=== PATIENT | male | born 1940 | race Caucasian/White ===

== ENCOUNTER 2017-09-03 18:43 | Inpatient (IN) ==
[2017-09-03] MEDS ORDERED: IOPAMIDOL 100 ML BOTTLE IV ONE (18:44)
--- NOTE | 2017-09-03 19:09 | Emergency Department Note ---
Abdominal Pain HPI - General Chief Complaint: Abdominal Pain Stated Complaint: Abdominal pain Time Seen by Provider: 09/03/17 18:53 Source: patient Mode of arrival: ambulatory Limitations: no limitations - History of Present Illness HPI Narrative: Patient presents, feeling poorly with distended abdomen. Symptoms began on Wednesday, sensitivity overheated. Began sweating profusely headache and malaise with abdominal discomfort. Occurred while he was camping. Mild nausea but no emesis. Over the last few days, very fatigued, spending most of his day sitting in armchair. Improved malaise but discomfort in his abdomen, flanks and generalized. No dysuria no change in urination. Minimal stooling but he has had several small. Distention continues, not improved with eating but has ongoing anorexia. No fevers or chills, otherwise general weakness. - Related Data Home Medications Medication Instructions Recorded Confirmed Aspirin [Orly Chewable Aspirin] 81 mg PO QDAY 12/22/15 04/10/17 Omeprazole [PriLOSEC] 20 mg PO ACB 12/22/15 04/10/17 PARoxetine HCL [Paxil] 10 mg PO QDAY 12/22/15 04/10/17 Gemfibrozil [Lopid] 600 mg PO BID 08/02/16 08/02/16 Previous Rx's Medication Instructions Recorded Oseltamivir Phosphate [Tamiflu] 75 mg PO BID #10 cap 04/10/17 Allergies Allergy/AdvReac Type Severity Reaction Status Date / Time No Known Drug Allergies Allergy Verified 08/02/16 18:45 Review of Systems All systems ED: reviewed and negative except as stated. Constitutional: Denies: fever, chills Cardiovascular: Denies: chest pain Respiratory: Denies: shortness of breath Gastrointestinal: Reports: nausea. Denies: vomiting Abdominal Pain PMH - Past Medical History Attestation: Yes: The following information was validated with the patient. Medical history: Reports: DVT, hyperlipidemia, other (no history of heart disease,pneumonia) Surgical history ED: Reports: colectomy, other (left renal resection) Psychiatric history: Reports: depression Family history: Reports: non-contributory - Social History Smoking status: Former smoker Alcohol use: Reports: Occasionally Drug use: Reports: none Physical Exam Limitations: no limitations General appearance: alert, in distress Head: atraumatic, normocephalic Eye: Present: normal appearance ENT: normal exam, mucous membranes moist Neck: Present: normal inspection. Absent: lymphadenopathy Chest: Present: normal inspection Respiratory: Present: normal lung sounds bilaterally. Absent: respiratory distress Cardiovascular: Present: regular rate, normal rhythm Abdominal: Present: distention (tympanitic, high tone bowel sounds), tenderness (mildly diffuse) Abdominal tenderness: Present: diffuse, mild Extremities: Present: normal inspection Back: Present: normal inspection Neurological: Present: alert, oriented X3 Skin: Present: warm, dry Course Vital Signs Temperature 98.5 F 09/03/17 18:44 Pulse Rate 83 09/03/17 18:44 Respiratory Rate 20 09/03/17 18:44 Blood Pressure 141/79 09/03/17 18:44 Pulse Oximetry (%) 96 09/03/17 18:44 Temperature 98.5 F 09/03/17 18:44 Pulse Rate 86 09/03/17 22:31 Respiratory Rate 20 09/03/17 18:44 Blood Pressure 144/79 09/03/17 22:31 Pulse Oximetry (%) 95 09/03/17 22:31 Abdominal Pain - Lab Data Lab results reviewed: Yes I reviewed the patient's lab results. Result diagrams: 09/03/17 19:36 09/03/17 19:36 Lab Results 09/03/17 09/03/17 Range/Units 19:36 19:36 WBC 10.7 (4.5-11.0) K/mcL RBC 4.01 L (4.50-5.90) M/mcL Hgb 13.1 L (13.5-16.5) g/dL Hct 38.8 L (41.0-55.0) % MCV 96.7 (80.0-100.0) fL MCH 32.7 (26.0-34.0) pg MCHC 33.8 (31.0-36.0) g/dL RDW 12.6 (11.5-14.5) % Plt Count 298 (140-440) K/mcL MPV 8.2 (7.4-10.4) fL Gran % 65.1 (38.0-78.0) % Lymph % (Auto) 21.2 (15.5-49.0) % [place] % (Auto) 8.8 (1.0-12.0) % Eos % (Auto) 3.9 (0.0-7.0) % Baso % (Auto) 1.0 (0.0-2.0) % Gran # 7.0 (1.8-8.0) K/mcL Lymph # (Auto) 2.3 (1.5-4.8) K/mcL [place] # (Auto) 0.9 (0.1-0.9) K/mcL Eos # (Auto) 0.4 (0.0-0.7) K/mcL Baso # (Auto) 0.1 (0.0-0.3) K/mcL Sodium 139 (133-145) mmol/L Potassium 4.0 (3.3-5.1) mmol/L Chloride 102 (96-108) mmol/L Carbon Dioxide 24 (22-30) mmol/L Anion Gap 13.0 (8-16) BUN 17 (8-23) mg/dl Creatinine 1.0 (0.7-1.2) mg/dl GFR Calculation 72 Glucose 120 H (70-105) mg/dL Calcium 9.1 (8.6-10.4) mg/dl Total Bilirubin 0.3 (0.0-1.0) mg/dL AST 17 (0-37) U/l ALT 19 (0-40) U/l Alkaline Phosphatase 59 (39-117) U/L Total Protein 7.2 (5.9-8.4) gm/dL Albumin 4.0 (3.2-5.2) gm/dL Globulin 3.2 (2.2-3.7) gm/dL Albumin/Globulin Ratio 1.3 (1.0-2.3) - Radiology Data Radiology results reviewed: Yes I reviewed the patient's radiology results. Flap of the abdomen with minimal gas pattern in the small bowel; CT the abdomen with oral and IV contrast demonstrates mild peripancreatic inflammation Disposition Pt seen by [facility] PP CONSULTANT/PA only: No Clinical Impression: Acute pancreatitis Qualifiers: Pancreatitis type: unspecified pancreatitis type Acute pancreatitis complication: no infection or necrosis Qualified Code(s): K85.90 - Acute pancreatitis without necrosis or infection, unspecified Summary: Differential includes retained pancreatic stone, hypertriglyceridemia, undisclosed pancreatic mass, peptic ulcer with erosion. Meds reviewed, do not suspect possible. Recommended for admission for gut rest, further imaging and GI consultation, Dr. Mondragon accepting Disposition: Xfer As Inpt ([facility]) Condition: Fair Referrals: Phil Knutson MD [Primary Care Provider] -
[2017-09-03] MEDS ORDERED: 0.9 % SODIUM CHLORIDE 1,000 ML IV SCH ×2 (19:15→23:45)
[2017-09-03] MEDS ORDERED: 0.9 % SODIUM CHLORIDE 1,000 ML IV ONE (19:18)
[2017-09-03 20:12] LABS: Basophils # (Auto) 0.1 K/mcL (0.0-0.3); Eosinophils # (Auto) 0.4 K/mcL (0.0-0.7); Eosinophils % (Auto) 3.9 % (0.0-7.0); Granulocytes % (Auto) 65.1 % (38.0-78.0); Lymphocytes # (Auto) 2.3 K/mcL (1.5-4.8); Lymphocytes % (Auto) 21.2 % (15.5-49.0); Mean Cell Volume 96.7 fL (80.0-100.0); Mean Corpuscular HGB Conc 33.8 g/dL (31.0-36.0); Mean Corpuscular Hemoglobin 32.7 pg (26.0-34.0); Monocytes # (Auto) 0.9 K/mcL (0.1-0.9); Monocytes % (Auto) 8.8 % (1.0-12.0); Platelet Count 298 K/mcL (140-440); RBC 4.01 M/mcL (4.50-5.90); Red Cell Distribution Width 12.6 % (11.5-14.5)
[2017-09-03 20:29] LABS: ALT/SGPT 19 U/l (0-40); Albumin/Globulin Ratio 1.3 (1.0-2.3); Alkaline Phosphatase 59 U/L (39-117); Blood Urea Nitrogen 17 mg/dl (8-23)
[2017-09-03] MEDS ORDERED: ONDANSETRON 4 MG/2 ML VIAL IV PRN (23:06)
[2017-09-03] MEDS ORDERED: HYDROmorphone 2 MG/ML VIAL IV PRN (23:08)
[2017-09-03] MEDS ORDERED: LACTATED RINGERS 1,000 ML IV SCH (23:15)
[2017-09-03 23:25] LABS: C-Reactive Protein 7.4 mg/dl (0.0-0.8)
[2017-09-04] MEDS ORDERED: HYDROmorphone 2 MG/ML VIAL ONE ×2 (00:33→05:27)
[2017-09-04] MEDS: HYDROmorphone 2 MG/ML VIAL IV PRN ×5 (00:33→19:22)
[2017-09-04 07:00] LABS: Mean Cell Volume 95.6 fL (80.0-100.0); Mean Corpuscular HGB Conc 34.5 g/dL (31.0-36.0); Platelet Count 257 K/mcL (140-440); RBC 3.63 M/mcL (4.50-5.90); Red Cell Distribution Width 12.4 % (11.5-14.5)
--- NOTE | 2017-09-04 07:18 | Internal Med History&Physical ---
Medical - H&P: HPI Patient information: Note initiated : 09/04/17 at 7:17 am Patient: Les Cross 77 y/o M admitted on 09/03/17 for Abdominal pain. Chief Complaint: [] Chief complaint: abdominal pain History of present illness: Mr. Cross is a 77 year old M with no significant prior medical history who presents to the ER with worsening epigastric pain and progressive abdominal distention that started on Wednesday. Patient's symptoms started 4 days ago with increasing abdominal pain exacerbated with food intake. Pain was described as sharp 6 out of 10-10 out of 10 without radiation. Pain was associated with low-grade fever and nausea, malaise and diaphoresis. Patient consumes one to 2 beers a day. He denies any prior similar episodes except for left kidney resection 20 years ago after he was diagnosed with atrophied kidney(per patient) Initial workup in the ER was significant for acute pancreatitis on CT abdomen. Lipase elevated at 240. Patient received crystalloids and antiemetics along with analgesics. Hospitalist service was consulted. At the time of evaluation patient is alert oriented. He was able to answer most questions and provide detailed history as above. He denies weight loss, bloody stools, bloody emesis. Endorses to acid reflux disorder and currently on omeprazole. He denies recent hospitalization or changes in medications. He denies any family history of prior similar events. Review of systems A 10 point review of system was performed and is negative except as discussed above Medical - H&P: PMH Medical history: gerd anxiety DVT, hyperlipidemia Surgical history: colectomy, (left renal resection) Right knee surgery Family history: reviewed and not pertinent Pertinent family history: Mother ovarian cancer Niece pancreatic cancer Social history: Smoking status: Former smoker Alcohol use: Reports: Occasionally Drug use: Reports: none Medical - H&P: Meds Home Medications Medication Instructions Recorded Confirmed Type Aspirin [Orly Chewable Aspirin] 81 mg PO QDAY 12/22/15 09/04/17 History Omeprazole [PriLOSEC] 20 mg PO ACB 12/22/15 09/04/17 History PARoxetine HCL [Paxil Cr] 25 mg PO ONCE 09/03/17 09/04/17 History Allergies Allergy/AdvReac Type Severity Reaction Status Date / Time Oxycodone [From OxyContin] AdvReac Intermediate Hallucinati Verified 07/21/18 01 :16 ng Medical - H&P: Exam - Constitutional Vitals: Temp Pulse Resp BP Pulse Ox 97.4 F 73 18 117/65 93 09/04/17 06:33 09/04/17 03:20 09/04/17 06:33 09/04/17 06:33 09/04/17 06:33 General appearance: moderate distress, obese Exam: Pupils symmetric oral cavity dry No ear discharge Head normocephalic/atraumatic Neck no lymphadenopathy S1 and S2 regular rhythm Diminished breath sounds bases Abdomen distended and sluggish bowel sounds along with epigastric tenderness No flank ecchymosis bruising Lower extremity no cyanosis and clubbing Normal range of motion at the joints Skin no suspicious lesion Psych alert cooperative Neuro nonfocal Medical - H&P: Reslt - Labs CBC & Chem 7: 09/04/17 05:10 09/04/17 05:10 Labs: Short CBC 09/03/17 09/04/17 Range/Units 19:36 05:10 WBC 10.7 9.6 (4.5-11.0) K/mcL Hgb 13.1 L 12.0 L (13.5-16.5) g/dL Hct 38.8 L 34.7 L (41.0-55.0) % Plt Count 298 257 (140-440) K/mcL BMP 09/03/17 19:36 Sodium 139 Potassium 4.0 Chloride 102 Carbon Dioxide 24 BUN 17 Creatinine 1.0 Glucose 120 H Calcium 9.1 Liver Function 09/03/17 Range/Units 19:36 Total Bilirubin 0.3 (0.0-1.0) mg/dL AST 17 (0-37) U/l ALT 19 (0-40) U/l Alkaline Phosphatase 59 (39-117) U/L Albumin 4.0 (3.2-5.2) gm/dL Medical - H&P: A/P (1) Acute pancreatitis Current visit: Yes Status: Acute * Acute pancreatitis-low Rene's and [place] score on admit. Continue conservative management with bowel rest/antiemetics crystalloids and analgesics. Trend CRP. Abdominal ultrasound. Likely alcohol induced * Abdominal pain managed on as needed opioids * Anxiety disorder-hold oral meds at this time * DVT prophylaxis on heparin * Full code Plan * Conservative management as above * Abdominal ultrasound * CRP trend * Inpatient admit Medical - H&P: Qual - VTE Deep Vein Thrombosis/Pulmonary Embolism Present on Admission: No
[2017-09-04 07:35] LABS: ALT/SGPT 16 U/l (0-40); Albumin 3.4 gm/dL (3.2-5.2); Albumin/Globulin Ratio 1.3 (1.0-2.3); Alkaline Phosphatase 47 U/L (39-117); Bilirubin,Direct < 0.2 mg/dL (0.0-0.3); Blood Urea Nitrogen 14 mg/dl (8-23); Gamma Glutamyl Transpeptidase 33 U/L (8-61); Uric Acid 5.2 mg/dL (2.5-8.0)
[2017-09-04] MEDS ORDERED: MAGNESIUM SULFATE 2 GM/50 ML BAG IV PRN (07:47)
[2017-09-04] MEDS ORDERED: ACETAMINOPHEN 1,000 MG/100 ML BOTTLE IV PRN (07:47)
[2017-09-04] MEDS ORDERED: POTASSIUM CHLORIDE 40 MEQ in DEXTROSE 5% IN WATER 500 ML IV PRN (07:47)
[2017-09-04] MEDS: LACTATED RINGERS 1,000 ML IV SCH ×4 (08:06→20:52)
--- NOTE | 2017-09-04 08:08 | Internal Med Progress Note ---
Medical - PN: Subj Patient information: Note initiated : 09/04/17 at 7:45 am Service Date, if different from initiated Date: [] Patient: Les Cross a 77 y/o M admitted on 09/03/17 for Abdominal pain. Chief Complaint: [] Interval history: Mr. Cross is a 77 year old M with no significant prior medical history who presents to the ER with worsening epigastric pain and progressive abdominal distention that started on Wednesday. Patient's symptoms started 4 days ago with increasing abdominal pain exacerbated with food intake. Pain was described as sharp 6 out of 10-10 out of 10 without radiation. Pain was associated with low-grade fever and nausea, malaise and diaphoresis. Patient consumes one to 2 beers a day. He denies any prior similar episodes except for left kidney resection 20 years ago after he was diagnosed with atrophied kidney(per patient) Initial workup in the ER was significant for acute pancreatitis on CT abdomen. Lipase elevated at 240. Patient received crystalloids and antiemetics along with analgesics. Hospitalist service was consulted. At the time of evaluation patient is alert oriented. He was able to answer most questions and provide detailed history as above. He denies weight loss, bloody stools, bloody emesis. Endorses to acid reflux disorder and currently on omeprazole. He denies recent hospitalization or changes in medications. He denies any family history of prior similar events. 09/04-patient doing better. Pain 4 out of 10. On crystalloids. On nothing by mouth status. Stable hemodynamics. Pending abdominal ultrasound. Counseled for alcohol cessation. Continue inpatient management. - Constitutional Vitals: Vital Signs Temp Pulse Resp BP Pulse Ox 97.4 F 73 18 117/65 93 09/04/17 06:33 09/04/17 03:20 09/04/17 06:33 09/04/17 06:33 09/04/17 06:33 Period Temp Pulse Resp BP Sys/Ch Pulse Ox Last 24 Hr 97.4 F-98.5 F 73-86 12-20 117-151/65-84 93-96 Intake and Output 09/03/17 09/04/17 09/04/17 21:59 05:59 13:59 Intake Total 1000 / 1000 1430 / 1430 Balance 1000 / 1000 1430 / 1430 Weight 270 lb 220 lb 11.2 oz Intake & Output: Intake & Output 09/03/17 09/04/17 09/04/17 21:59 05:59 13:59 Intake Total 1000 / 1000 1430 / 1430 Balance 1000 / 1000 1430 / 1430 Weight 270 lb 220 lb 11.2 oz Intake: IV 1000 / 1000 1130 / 1130 Sodium Chloride 0.9% 1,000 ml @ 1000 / 1000 1000 / 1000 Wide Open IV [facility] Rx#: [id number] Lactated Ringers 1,000 ml @ 150 130 / 130 mls/hr IV .Q6H40M [facility] Rx#: [id number] Oral 300 / 300 General appearance: no acute distress Exam: Alert oriented Nonlabored breathing Distended abdomen to sluggish bowel sounds No lymphedema Medical - PN: Obj Da - Labs CBC & Chem 7: 09/04/17 05:10 09/04/17 05:10 Labs: Abnormal Lab Results 09/04/17 09/04/17 09/03/17 05:10 05:10 19:36 RBC 3.63 L Hgb 12.0 L Hct 34.7 L Glucose Calcium 8.4 L C-Reactive Protein Triglycerides 222 H Lipase 09/03/17 09/03/17 09/03/17 19:36 19:36 19:36 RBC 4.01 L Hgb 13.1 L Hct 38.8 L Glucose 120 H Calcium C-Reactive Protein 7.4 H Triglycerides Lipase 242 H Meds: Medications Hydromorphone HCl (Dilaudid) 0.5 mg IV Q1HP PRN PRN Reason: PAIN LEVEL > 6 Last Admin: 09/04/17 05:31 Dose: 0.5 mg Lactated Ringer's (Lactated Ringers) 1,000 mls @ 150 mls/hr IV .Q6H40M [facility] Last Infusion: 09/04/17 02:46 Dose: 150 mls/hr Sodium Chloride (Sodium Chloride 0.9%) 1,000 mls @ 0 mls/hr IV BOLUS [facility] Last Infusion: 09/04/17 02:45 Dose: Infused Ondansetron HCl (Zofran) 4 mg IV Q4HP PRN PRN Reason: Nausea And Vomiting Medical - PN: A/P - Time Spent With Patient Total time spent is greater than 50% in coordination of care (as documented) at patient's floor/unit and/or counseling patient: 15 - 24 minutes (1) Acute pancreatitis Status: Acute Assessment and plan: * Acute pancreatitis-low Rene's and [place] score on admit. Clinical improvement noted. Continue conservative management. Await Abdominal ultrasound. Likely alcohol induced, alcohol cessation counseling performed * Abdominal pain managed on as needed opioids * Anxiety disorder-hold oral meds at this time * DVT prophylaxis on heparin * Full code Plan * Continue conservative management * Abdominal ultrasound Current Visit: Yes Medical - PN: Qual - VTE Deep Vein Thrombosis/Pulmonary Embolism Present on Admission: No
[2017-09-04] MEDS: HEPARIN 5,000 UNIT/ML VIAL SQ SCH ×2 (08:13→20:49)
[2017-09-04] MEDS: DOCUSATE SODIUM 100 MG CAPSULE PO SCH ×2 (08:15→20:49)
[2017-09-04 09:29] LABS: Eosinophils % (Manual) 6 % (0-7); Lymphocytes % 21 % (15-49); Monocytes % (Manual) 2 % (1-12); Platelet Estimate NORMAL (NORMAL); RBC Morphology NORMAL (NORMAL); Segmented Neutrophils % 71 % (38-78)
--- NOTE | 2017-09-04 13:30 | XRay Report ---
HISTORY: Reason for Exam:distended abdomen FINDINGS: A couple air-fluid levels are present in the right epigastrium and right mid abdomen. These appear to be within nondilated loops of small bowel. There is normal amount of gas and stool in the colon. There is some ingested material within a nondistended stomach. No free intra-abdominal air is present. There are surgical clips in the gallbladder fossa and lateral to the left side of the L2-3 disc space. Degenerative changes are noted in the thoracic and lumbar spine. IMPRESSION: Normal exam without evidence of bowel obstruction Interpreted and Authenticated by: Mejia Roche 09/04/17
--- NOTE | 2017-09-04 13:37 | Cat Scan Report ---
CLINICAL INFORMATION: Reason for Exam:distended abdomen COMPARISON: 11/25/12 TECHNIQUE: Following oral contrast and the injection of intravenous contrast the patient was scanned during the portal venous phase from the diaphragm through the symphysis pubis. Sagittal and coronal reformats radiation exposure was limited using dose reduction technology. 6Were created.. FINDINGS: The liver and spleen are normal in size and homogeneous. The gallbladder has been removed. The bile ducts are nondilated.. There stranding of the fat around the body and tail the pancreas. This is a new finding since prior CT. The tail of pancreas is also slightly larger today than it was previously. The head neck and proximal body are normal. No pseudocyst is present. The bowel pattern is normal without evidence of obstruction or ileus. There are several diverticula in the descending and sigmoid colon but without evidence of acute diverticulitis. The appendix is noninflamed. Patient has a solitary right kidney. There are clips in the left renal fossa. There is stranding around the right kidney. This is a chronic finding. The distal right ureter is dilated but there are no stones within the ureter. There is no dilatation of the renal pelvis or calyces. No right-sided renal mass or calculus are present. The dilatation of the right ureter is a chronic stable finding. The urinary bladder appears normal. The prostate is mildly enlarged. There is a fat-containing left inguinal hernia. Moderate disc space narrowing is present at L5-S1 and there is mild narrowing at L4-5. IMPRESSION: Pancreatitis Diverticulosis in the sigmoid colon Interpreted and Authenticated by: Mejia Roche 09/04/17
--- NOTE | 2017-09-04 14:00 | Ultrasound Report ---
History: Acute right upper quadrant pain consistent with pancreatitis. The pancreas appears normal without evidence of mass or acute pancreatitis. The duct is nondilated. Liver is normal in size. Parenchyma is slightly heterogeneous suggesting mild fatty infiltration. There is no evidence of a mass. The bile ducts are nondilated. The gallbladder is surgically absent. No ascites or mass are seen in the right upper quadrant. Doppler shows normal blood flow in the hepatic and portal veins. IMPRESSION: Anatomically normal pancreas and borderline fatty infiltration of the liver Interpreted and Authenticated by: Mejia Roche 09/04/17
[2017-09-04] MEDS: 0.9 % SODIUM CHLORIDE 10 ML SYRINGE IV SCH ×2 (15:26→22:31)
[2017-09-05] MEDS: HYDROmorphone 2 MG/ML VIAL IV PRN ×4 (01:12→19:31)
[2017-09-05] MEDS: LACTATED RINGERS 1,000 ML IV SCH (03:42)
[2017-09-05] MEDS: 0.9 % SODIUM CHLORIDE 10 ML SYRINGE IV SCH ×3 (04:55→22:33)
[2017-09-05 06:10] LABS: Mean Cell Volume 96.1 fL (80.0-100.0); Mean Corpuscular HGB Conc 34.3 g/dL (31.0-36.0); Platelet Count 248 K/mcL (140-440); RBC 3.51 M/mcL (4.50-5.90); Red Cell Distribution Width 12.3 % (11.5-14.5)
[2017-09-05 06:27] LABS: ALT/SGPT 15 U/l (0-40); Albumin 3.4 gm/dL (3.2-5.2); Albumin/Globulin Ratio 1.2 (1.0-2.3); Alkaline Phosphatase 49 U/L (39-117); Bilirubin,Direct < 0.2 mg/dL (0.0-0.3); Blood Urea Nitrogen 10 mg/dl (8-23); Gamma Glutamyl Transpeptidase 39 U/L (8-61); Uric Acid 4.8 mg/dL (2.5-8.0)
[2017-09-05] MEDS ORDERED: LACTATED RINGERS 1,000 ML IV SCH (07:06)
[2017-09-05] MEDS: HEPARIN 5,000 UNIT/ML VIAL SQ SCH ×2 (08:01→22:31)
[2017-09-05] MEDS: DOCUSATE SODIUM 100 MG CAPSULE PO SCH ×2 (08:02→20:24)
--- NOTE | 2017-09-05 09:06 | Internal Med Progress Note ---
Medical - PN: Subj Patient information: Note initiated : 09/05/17 at 9:03 am Service Date, if different from initiated Date: [] Patient: Les Cross a 77 y/o M admitted on 09/03/17 for Abdominal pain. Chief Complaint: [] Interval history: Mr. Cross is a 77 year old M with no significant prior medical history who presents to the ER with worsening epigastric pain and progressive abdominal distention that started on Wednesday. Patient's symptoms started 4 days ago with increasing abdominal pain exacerbated with food intake. Pain was described as sharp 6 out of 10-10 out of 10 without radiation. Pain was associated with low-grade fever and nausea, malaise and diaphoresis. Patient consumes one to 2 beers a day. He denies any prior similar episodes except for left kidney resection 20 years ago after he was diagnosed with atrophied kidney(per patient) Initial workup in the ER was significant for acute pancreatitis on CT abdomen. Lipase elevated at 240. Patient received crystalloids and antiemetics along with analgesics. Hospitalist service was consulted. At the time of evaluation patient is alert oriented. He was able to answer most questions and provide detailed history as above. He denies weight loss, bloody stools, bloody emesis. Endorses to acid reflux disorder and currently on omeprazole. He denies recent hospitalization or changes in medications. He denies any family history of prior similar events. 09/04-patient doing better. Pain 4 out of 10. On crystalloids. On nothing by mouth status. Stable hemodynamics. Pending abdominal ultrasound. Counseled for alcohol cessation. Continue inpatient management. 09/05-patient doing a lot better. Improved pain. Feels hungry but persistent abdominal bloating. Passing gas and had a liquid bowel movement. Start oral clears. Lower IV fluids to 50 an hour. Continue pain management on as needed opioids. Advance diet as tolerated. Stable hemodynamics - Constitutional Vitals: Vital Signs Temp Pulse Resp BP Pulse Ox 97.7 F 69 18 129/76 95 09/05/17 06:40 09/05/17 03:46 09/05/17 06:40 09/05/17 06:40 09/05/17 06:40 Period Temp Pulse Resp BP Sys/Ch Pulse Ox Last 24 Hr 97.7 F-98.9 F 64-81 16-18 113-136/69-77 93-96 Intake and Output 09/04/17 09/05/17 09/05/17 21:59 05:59 13:59 Intake Total 2505 / 2505 1270 / 1270 Output Total 575 / 575 1025 / 1025 325 / 325 Balance 19290 245 / 245 -325 / -325 Weight 220 lb 12.8 oz Intake & Output: Intake & Output 09/04/17 09/05/17 09/05/17 21:59 05:59 13:59 Intake Total 2505 / 2505 1270 / 1270 Output Total 575 / 575 1025 / 1025 325 / 325 Balance 1929 245 / 245 -325 / -325 Weight 220 lb 12.8 oz Intake: IV 1954 1000 / 1000 Lactated Ringers 1,000 ml @ 150 1954 1000 / 1000 mls/hr IV .Q6H40M [facility] Rx#: [id number] Oral 550 / 550 270 / 270 Output: Void Amount 575 / 575 1025 / 1025 325 / 325 Other: Stool Size Small Stool Color Brown Stool Consistency Liquid # Bowel Movements 1 General appearance: no acute distress Exam: Alert oriented minimally labored breathing distended abdomen No anxiety Medical - PN: Obj Da - Labs CBC & Chem 7: 09/05/17 04:41 09/05/17 04:41 Labs: Abnormal Lab Results 09/05/17 09/05/17 09/04/17 04:41 04:41 05:10 RBC 3.51 L Hgb 11.6 L Hct 33.7 L Glucose Calcium C-Reactive Protein 8.7 H 5.7 H Triglycerides Lipase 09/04/17 09/04/17 09/03/17 05:10 05:10 19:36 RBC 3.63 L Hgb 12.0 L Hct 34.7 L Glucose Calcium 8.4 L C-Reactive Protein Triglycerides 222 H Lipase 09/03/17 09/03/17 09/03/17 19:36 19:36 19:36 RBC 4.01 L Hgb 13.1 L Hct 38.8 L Glucose 120 H Calcium C-Reactive Protein 7.4 H Triglycerides Lipase 242 H Meds: Medications Docusate Sodium (Colace) 100 mg PO BID [facility] Last Admin: 09/05/17 08:02 Dose: Not Given Heparin Sodium (Porcine) (Heparin) 5,000 unit SQ Q12 [facility] Last Admin: 09/05/17 08:01 Dose: 5,000 unit Hydromorphone HCl (Dilaudid) 0.5 mg IV Q1HP PRN PRN Reason: PAIN LEVEL > 6 Last Admin: 09/05/17 07:09 Dose: 0.5 mg Potassium Chloride 40 meq/ (Dextrose) 520 mls @ 130 mls/hr IV UD PRN PRN Reason: K+ = or < 3.5 Magnesium Sulfate (Magnesium Sulfate) 2 gm in 50 mls @ 50 mls/hr IV UD PRN PRN Reason: MG = or < 1.7 Acetaminophen (Ofirmev) 1,000 mg in 100 mls @ 200 mls/hr IV Q6HP PRN PRN Reason: PAIN/FEVER > 101 Lactated Ringer's (Lactated Ringers) 1,000 mls @ 50 mls/hr IV .Q20H [facility] Stop: 09/07/17 19:05 Last Admin: 09/05/17 07:13 Dose: Not Given Ondansetron HCl (Zofran) 4 mg IV Q4HP PRN PRN Reason: Nausea And Vomiting Sodium Chloride (Saline Flush) 10 ml IV Q8 [facility] Last Admin: 09/05/17 04:55 Dose: Not Given Medical - PN: A/P - Time Spent With Patient Total time spent is greater than 50% in coordination of care (as documented) at patient's floor/unit and/or counseling patient: 15 - 24 minutes (1) Acute pancreatitis Status: Acute Assessment and plan: * Acute clinical improvement noted with conservative management. Lower IV fluids and start oral clears. Pain significantly improved. CRP around 8. Abdominal ultrasound no evidence of CBD dilation or stone. * Abdominal pain managed on as needed opioids. Clinically improved requiring less opioids * Anxiety restart oral paroxetine * DVT prophylaxis on heparin * Full code Plan * Continue conservative management * PT OT * Lower IV fluids * Restart oral meds * Start clears Current Visit: Yes Medical - PN: Qual - VTE Deep Vein Thrombosis/Pulmonary Embolism Present on Admission: No
[2017-09-05 09:27] LABS: Eosinophils % (Manual) 11 % (0-7); Lymphocytes % 24 % (15-49); Monocytes % (Manual) 3 % (1-12); Platelet Estimate NORMAL (NORMAL); RBC Morphology NORMAL (NORMAL); Segmented Neutrophils % 62 % (38-78)
[2017-09-05] MEDS: ASPIRIN 81 MG TAB.CHEW PO SCH (09:57)
[2017-09-05] MEDS: PARoxetine 20 MG TABLET PO SCH (09:57)
[2017-09-05] MEDS: OMEPRAZOLE 20 MG CAPSULE PO SCH (09:57)
[2017-09-06] MEDS: 0.9 % SODIUM CHLORIDE 10 ML SYRINGE IV SCH ×3 (04:21→21:03)
[2017-09-06 05:49] LABS: Mean Cell Volume 95.9 fL (80.0-100.0); Mean Corpuscular HGB Conc 34.1 g/dL (31.0-36.0); Mean Corpuscular Hemoglobin 32.7 pg (26.0-34.0); Platelet Count 263 K/mcL (140-440); RBC 3.58 M/mcL (4.50-5.90); Red Cell Distribution Width 12.1 % (11.5-14.5)
[2017-09-06 06:16] LABS: ALT/SGPT 15 U/l (0-40); Albumin 3.6 gm/dL (3.2-5.2); Albumin/Globulin Ratio 1.2 (1.0-2.3); Alkaline Phosphatase 57 U/L (39-117); Bilirubin,Direct < 0.2 mg/dL (0.0-0.3); Blood Urea Nitrogen 9 mg/dl (8-23); Gamma Glutamyl Transpeptidase 47 U/L (8-61); Uric Acid 5.4 mg/dL (2.5-8.0)
[2017-09-06] MEDS: OMEPRAZOLE 20 MG CAPSULE PO SCH (07:18)
[2017-09-06] MEDS: DOCUSATE SODIUM 100 MG CAPSULE PO SCH ×2 (07:18→21:03)
[2017-09-06] MEDS: PARoxetine 20 MG TABLET PO SCH (08:44)
[2017-09-06] MEDS: HEPARIN 5,000 UNIT/ML VIAL SQ SCH ×2 (08:44→21:03)
[2017-09-06] MEDS: ASPIRIN 81 MG TAB.CHEW PO SCH (08:44)
[2017-09-06 08:48] LABS: Eosinophils % (Manual) 1 % (0-7); Lymphocytes % 19 % (15-49); Monocytes % (Manual) 10 % (1-12); Platelet Estimate NORMAL (NORMAL); RBC Morphology NORMAL (NORMAL); Segmented Neutrophils % 70 % (38-78)
[2017-09-06] MEDS ORDERED: HYDROcodone/APAP 5/325MG TABLET PO PRN (08:53)
--- NOTE | 2017-09-06 10:24 | Internal Med Progress Note ---
Medical - PN: Subj Patient information: Note initiated : 09/06/17 at 10:22 am Service Date, if different from initiated Date: [] Patient: Les Cross a 77 y/o M admitted on 09/03/17 for Abdominal Pain/ Pancreatitis. Chief Complaint: [] Interval history: Mr. Cross is a 77 year old M with no significant prior medical history who presents to the ER with worsening epigastric pain and progressive abdominal distention that started on Wednesday. Patient's symptoms started 4 days ago with increasing abdominal pain exacerbated with food intake. Pain was described as sharp 6 out of 10-10 out of 10 without radiation. Pain was associated with low-grade fever and nausea, malaise and diaphoresis. Patient consumes one to 2 beers a day. He denies any prior similar episodes except for left kidney resection 20 years ago after he was diagnosed with atrophied kidney(per patient) Initial workup in the ER was significant for acute pancreatitis on CT abdomen. Lipase elevated at 240. Patient received crystalloids and antiemetics along with analgesics. Hospitalist service was consulted. At the time of evaluation patient is alert oriented. He was able to answer most questions and provide detailed history as above. He denies weight loss, bloody stools, bloody emesis. Endorses to acid reflux disorder and currently on omeprazole. He denies recent hospitalization or changes in medications. He denies any family history of prior similar events. 09/04-patient doing better. Pain 4 out of 10. On crystalloids. On nothing by mouth status. Stable hemodynamics. Pending abdominal ultrasound. Counseled for alcohol cessation. Continue inpatient management. 09/05-patient doing a lot better. Improved pain. Feels hungry but persistent abdominal bloating. Passing gas and had a liquid bowel movement. Start oral clears. Lower IV fluids to 50 an hour. Continue pain management on as needed opioids. Advance diet as tolerated. Stable hemodynamics 09/06-patient doing better. Abdominal pain much improved. Liquid stools this morning. Tolerating clears. Advancing to full liquids. CRP elevated at 8. Requiring less opioids. Abdominal distention persistent. No family at bedside. Able to ambulate. IV fluids discontinued. Overnight the MAXIMUM TEMPERATURE 100.1. - Constitutional Vitals: Vital Signs Temp Pulse Resp BP Pulse Ox 100.1 F H 77 17 136/82 94 09/06/17 06:40 09/06/17 06:40 09/06/17 06:40 09/06/17 06:40 09/06/17 06:40 Period Temp Pulse Resp BP Sys/Ch Pulse Ox Last 24 Hr 97.1 F-100.1 F 69-87 12-18 103-136/65-82 94-96 Intake and Output 09/05/17 09/06/17 09/06/17 21:59 05:59 13:59 Intake Total 180 / 180 240 / 240 Output Total 400 / 400 700 / 700 500 / 500 Balance -220 / -220 -460 / -460 -500 / -500 Weight 218 lb Intake & Output: Intake & Output 09/05/17 09/06/17 09/06/17 21:59 05:59 13:59 Intake Total 180 / 180 240 / 240 Output Total 400 / 400 700 / 700 500 / 500 Balance -220 / -220 -460 / -460 -500 / -500 Weight 218 lb Intake: Oral 180 / 180 240 / 240 Output: Void Amount 400 / 400 700 / 700 500 / 500 Other: Meal jello Percent of Meal Consumed 100% General appearance: no acute distress, obese Exam: Distended abdomen Nonlabored breathing Sitting in chair Ambulating No anxiety Medical - PN: Obj Da - Labs CBC & Chem 7: 09/06/17 04:26 09/06/17 04:26 Labs: Abnormal Lab Results 09/06/17 09/06/17 09/05/17 04:26 04:26 04:41 RBC 3.58 L Hgb 11.7 L Hct 34.3 L Eosinophils % (Manual) Glucose Calcium C-Reactive Protein 11.0 H 8.7 H Triglycerides Lipase 09/05/17 09/04/17 09/04/17 04:41 05:10 05:10 RBC 3.51 L Hgb 11.6 L Hct 33.7 L Eosinophils % (Manual) 11 H Glucose Calcium 8.4 L C-Reactive Protein 5.7 H Triglycerides Lipase 09/04/17 09/03/17 09/03/17 05:10 19:36 19:36 RBC 3.63 L Hgb 12.0 L Hct 34.7 L Eosinophils % (Manual) Glucose Calcium C-Reactive Protein 7.4 H Triglycerides 222 H Lipase 242 H 09/03/17 09/03/17 19:36 19:36 RBC 4.01 L Hgb 13.1 L Hct 38.8 L Eosinophils % (Manual) Glucose 120 H Calcium C-Reactive Protein Triglycerides Lipase Meds: Medications Hydrocodone Bitart/Acetaminophen (Bluejacket 5/325mg) 1 tab PO Q4HP PRN PRN Reason: PAIN LEVEL 3-6 Last Admin: 09/06/17 09:33 Dose: 1 tab Aspirin (Aspirin) 81 mg PO QDAY [facility] Last Admin: 09/06/17 08:44 Dose: 81 mg Docusate Sodium (Colace) 100 mg PO BID [facility] Last Admin: 09/06/17 07:18 Dose: Not Given Heparin Sodium (Porcine) (Heparin) 5,000 unit SQ Q12 [facility] Last Admin: 09/06/17 08:44 Dose: 5,000 unit Hydromorphone HCl (Dilaudid) 0.5 mg IV Q1HP PRN PRN Reason: PAIN LEVEL > 6 Last Admin: 09/05/17 19:31 Dose: 0.5 mg Potassium Chloride 40 meq/ (Dextrose) 520 mls @ 130 mls/hr IV UD PRN PRN Reason: K+ = or < 3.5 Magnesium Sulfate (Magnesium Sulfate) 2 gm in 50 mls @ 50 mls/hr IV UD PRN PRN Reason: MG = or < 1.7 Acetaminophen (Ofirmev) 1,000 mg in 100 mls @ 200 mls/hr IV Q6HP PRN PRN Reason: PAIN/FEVER > 101 Omeprazole (Prilosec) 20 mg PO ACB [facility] Last Admin: 09/06/17 07:18 Dose: 20 mg Ondansetron HCl (Zofran) 4 mg IV Q4HP PRN PRN Reason: Nausea And Vomiting Paroxetine HCl (Paxil) 20 mg PO DAILY [facility] Last Admin: 09/06/17 08:44 Dose: 20 mg Sodium Chloride (Saline Flush) 10 ml IV Q8 [facility] Last Admin: 09/06/17 04:21 Dose: 10 ml Medical - PN: A/P - Time Spent With Patient Total time spent is greater than 50% in coordination of care (as documented) at patient's floor/unit and/or counseling patient: 15 - 24 minutes (1) Acute pancreatitis Status: Acute Assessment and plan: * Acute pancreatitis likely alcohol induced-clinically improved. Advancing diet to full liquids. Low Babbitt score at 48 hours * Abdominal pain -clinically improved -switch to oral opioids * Anxiety restart oral paroxetine * DVT prophylaxis on heparin * Full code Plan * Advanced to full liquids * PT OT * Possible discharge in 24 hours if able to tolerate a low-fat diet advance Current Visit: Yes Medical - PN: Qual - VTE Deep Vein Thrombosis/Pulmonary Embolism Present on Admission: No
[2017-09-07 05:27] LABS: Mean Cell Volume 95.2 fL (80.0-100.0); Mean Corpuscular Hemoglobin 32.3 pg (26.0-34.0); Platelet Count 302 K/mcL (140-440); RBC 3.86 M/mcL (4.50-5.90); Red Cell Distribution Width 12.2 % (11.5-14.5)
[2017-09-07 05:48] LABS: ALT/SGPT 17 U/l (0-40); Albumin 3.8 gm/dL (3.2-5.2); Albumin/Globulin Ratio 1.3 (1.0-2.3); Alkaline Phosphatase 56 U/L (39-117); Bilirubin,Direct < 0.2 mg/dL (0.0-0.3); Blood Urea Nitrogen 10 mg/dl (8-23); Gamma Glutamyl Transpeptidase 44 U/L (8-61); Uric Acid 6.6 mg/dL (2.5-8.0)
[2017-09-07] MEDS: OMEPRAZOLE 20 MG CAPSULE PO SCH (08:00)
[2017-09-07] MEDS: PARoxetine 20 MG TABLET PO SCH (08:01)
[2017-09-07] MEDS: ASPIRIN 81 MG TAB.CHEW PO SCH (08:01)
[2017-09-07] MEDS: DOCUSATE SODIUM 100 MG CAPSULE PO SCH (08:01)
[2017-09-07] MEDS: HEPARIN 5,000 UNIT/ML VIAL SQ SCH (08:01)
[2017-09-07] MEDS: 0.9 % SODIUM CHLORIDE 10 ML SYRINGE IV SCH (08:02)
[2017-09-07 08:45] LABS: Eosinophils % (Manual) 5 % (0-7); Lymphocytes % 33 % (15-49); Monocytes % (Manual) 10 % (1-12); Platelet Estimate NORMAL (NORMAL); RBC Morphology NORMAL (NORMAL); Segmented Neutrophils % 52 % (38-78)
--- NOTE | 2017-09-07 10:19 | Discharge Summary ---
Medical - DS: Prov Patient information: Note initiated : 09/07/17 at 10:17 am Service Date, if different from initiated Date: [] Patient: Les Cross 77 y/o M admitted on 09/03/17 for Abdominal Pain/ Pancreatitis. Chief Complaint: [] Date of admission: 09/03/17 23:46 Discharge date: 09/07/17 Primary care physician: Phil Knutson Medical - DS: Meds - Discharge Medications Active and Home Medications: Home Medications Aspirin [Orly Chewable Aspirin] 81 mg PO QDAY 12/22/15 [History Confirmed 09/04 Last Taken 09/03/17 09:30] Omeprazole [Prilosec] 20 mg PO ACB 12/22/15 [History Confirmed 09/04/17 Last Taken 09/03/17 09:30] PARoxetine HCL [Paxil Cr] 25 mg PO ONCE 09/03/17 [History Confirmed 09/04/17 Last Taken 09/03/17 09:30] Medical - DS: Hosp Hospital course: Discharge diagnoses * Acute pancreatitis likely alcohol induced-clinically resolved. Continue low- fat diet and abstinence from alcohol * Abdominal pain -clinically resolved * Anxiety continue home dose paroxetine Brief hospital course Mr. Cross is a 77 year old M with no significant prior medical history who presents to the ER with worsening epigastric pain and progressive abdominal distention that started on Wednesday. Patient's symptoms started 4 days ago with increasing abdominal pain exacerbated with food intake. Pain was described as sharp 6 out of 10-10 out of 10 without radiation. Pain was associated with low-grade fever and nausea, malaise and diaphoresis. Patient consumes one to 2 beers a day. He denies any prior similar episodes except for left kidney resection 20 years ago after he was diagnosed with atrophied kidney(per patient) Initial workup in the ER was significant for acute pancreatitis on CT abdomen. Lipase elevated at 240. Patient received crystalloids and antiemetics along with analgesics. Hospitalist service was consulted. At the time of evaluation patient is alert oriented. He was able to answer most questions and provide detailed history as above. He denies weight loss, bloody stools, bloody emesis. Endorses to acid reflux disorder and currently on omeprazole. He denies recent hospitalization or changes in medications. He denies any family history of prior similar events. 09/04-patient doing better. Pain 4 out of 10. On crystalloids. On nothing by mouth status. Stable hemodynamics. Pending abdominal ultrasound. Counseled for alcohol cessation. Continue inpatient management. 09/05-patient doing a lot better. Improved pain. Feels hungry but persistent abdominal bloating. Passing gas and had a liquid bowel movement. Start oral clears. Lower IV fluids to 50 an hour. Continue pain management on as needed opioids. Advance diet as tolerated. Stable hemodynamics 09/06-patient doing better. Abdominal pain much improved. Liquid stools this morning. Tolerating clears. Advancing to full liquids. CRP elevated at 8. Requiring less opioids. Abdominal distention persistent. No family at bedside. Able to ambulate. IV fluids discontinued. Overnight the MAXIMUM TEMPERATURE 100.1. 09/07-patient seen in room with his . No overnight events. Denies any abdominal pain. Tolerating low-fat diet without any symptoms. Ambulating. No nausea vomiting. Discharge instructions discussed with patient and are continuing low-fat diet and abstinence from alcohol. Discharge diagnosis: . - Time Spent with Patient Total time spent providing and/or coordinating discharge services: Medical - DS: Exam - Constitutional Vitals: Vital Signs Temp Pulse Resp BP Pulse Ox 09/07/17 07:27 98.4 F 62 18 134/72 95 09/07/17 04:00 97.8 F 69 18 142/80 95 09/06/17 23:45 97.9 F 68 18 141/74 95 09/06/17 20:00 97.5 F 77 18 137/77 94 09/06/17 15:21 97.3 F 18 138/74 95 09/06/17 11:36 96.5 F L 18 124/64 94 Intake and Output 09/06/17 09/07/17 09/07/17 21:59 05:59 13:59 Intake Total 720 / 720 50 / 50 Output Total 1450 / 1450 600 / 600 Balance -730 / -730 -550 / -550 Intake: Oral 720 / 720 50 / 50 Output: Void Amount 1450 / 1450 600 / 600 Other: Meal Jello Percent of Meal Consumed 100% Feeding Ability Independent Stool Consistency Loose Weight 218 lb Medical - DS: Data Labs on day of discharge: Labs from last 24 hours 09/07/17 09/07/17 04:05 04:05 WBC 7.7 RBC 3.86 L Hgb 12.5 L Hct 36.8 L MCV 95.2 MCH 32.3 MCHC 34.0 RDW 12.2 Plt Count 302 MPV 8.0 Total Counted 100 Seg Neutrophils % 52 Band Neutrophils % Not Reportable Lymphocytes % 33 Monocytes % (Manual) 10 Eosinophils % (Manual) 5 Platelet Estimate Normal RBC Morphology Normal Sodium 141 Potassium 3.9 Chloride 104 Carbon Dioxide 24 Anion Gap 13.0 BUN 10 Creatinine 1.0 GFR Calculation 72 Glucose 101 Uric Acid 6.6 Calcium 9.1 Phosphorus 3.4 Magnesium 2.1 Total Bilirubin 0.5 Direct Bilirubin < 0.2 GGT 44 AST 17 ALT 17 Alkaline Phosphatase 56 Lactate Dehydrogenase 136 Total Protein 6.8 Albumin 3.8 Globulin 3.0 Albumin/Globulin Ratio 1.3 Triglycerides 176 H Medical - DS: A/P - Patient/Caregiver Discharge Instructions Activity: increase activity as tolerated Diet: Low Fat Additional Instructions: Follow-up primary care physician Dr. Knutson in 1 week Refrain from alcohol continue low-fat diet and return to ER if worsening abdominal pain nausea vomiting - Problem Maintenance (1) Acute pancreatitis Status: Acute Qualifiers: Pancreatitis type: unspecified pancreatitis type Acute pancreatitis complication: no infection or necrosis Qualified Code(s): K85.90 - Acute pancreatitis without necrosis or infection, unspecified - Follow up Plan Follow up with: Phil Knutson MD [Primary Care Provider] - Disposition: Home, Self-Care Prognosis: Fair Rehab Potential: Fair I certify that the patient requires SNF services: No Overall status at discharge: patient is progressing back to baseline Medical - DS: Qual - VTE Deep Vein Thrombosis/Pulmonary Embolism Present on Admission: No
== END 2017-09-07 11:18 | disposition home or self-care (01) | DRG 440 ==
LOC: ED 18:43 → MEDSUR 23:46
PROVIDERS: ADMIT Internal Medicine; ATTEND Internal Medicine